=== PATIENT | male | born 1980 | race Caucasian/White ===

== ENCOUNTER → 2016-09-20 | Outpatient (CLI) | payer OTHER ==
--- NOTE | 2016-09-20 11:05 | MR ---
MR lumbar spine wo/w con Low back pain, prior lspine surgery MultiHance Multiplanar, multiecho imaging of the lumbar spine was obtained without contrast on a 3 Dottie magnet. REFERENCE:None. FINDINGS: There is a 2.4 cm cystic lesion involving the mid polar region of the left kidney. Paraspi nal soft tissues are otherwise unremarkable. There is a minimal levoscoliosis. Vertebral body height and alignment are maintained. There is no spondylolysis or spondylolisthesis. Cord signal is normal. The conus ends normally at the level of the mid body of L1. At T12-L1, no definite abnormality is seen. At L1-2, there is mild disc space loss. There is mild, bilateral intervertebral foraminal narrowing. There is hypertrophic change within the facets. At L2-3, there is mild, bilateral intervertebral foraminal narrowing. There is a diffuse disc displac ement. There are hypertrophic changes within the facets. There is mild trefoiling of the thecal sac. At L3-4, there is mild, bilateral intervertebral foraminal narrowing. There is a diffuse disc displac ement. There is hypertrophic change and capsulitis within the facets. There is mild trefoiling of the thecal sac. At L4-5, there is disc space loss and disc desiccation. There is a diffuse disc displacement. Interve rtebral foramina appear reasonably well-maintained. There is hypertrophic change and capsulitis withi n the facets. There is mild to moderate central canal stenosis. At L5-S1, there is disc space loss and disc desiccation present. The intervertebral foramina appear r easonably well-maintained. There is a diffuse disc displacement effacing the thecal sac without defin ite neural compression. There are hypertrophic changes within the facets. IMPRESSION: 1. DIFFUSE DEGENERATIVE DISC DISEASE. 2. DIFFUSE FACET ARTHROPATHY. 3. MULTILEVEL INTERVERTEBRAL FORAMINAL NARROWING. 4. MILD TO MODERATE CENTRAL CANAL COMPROMISE, L4-5.
== END | disposition home or self-care (01) ==
LOC: RADMRIMAIN 07:28
PROVIDERS: ATTEND Internal Medicine
DX: M99.73 Connective tissue and disc stenosis of intervertebral foramina of lumbar region (principal); M51.36 Other intervertebral disc degeneration, lumbar region; M46.86 Other specified inflammatory spondylopathies, lumbar region
CPT/HCPCS: 72158; A9577

== ENCOUNTER → 2017-01-03 | Outpatient (CLI) | payer OTHER ==
[2017-01-03 13:42] LABS: Appearance,Urine Clear (Clear); Bilirubin,Urine Negative (Negative); Glucose,Urine (UA) Negative (Negative); Ketones,Urine Negative (Negative); Leukocyte Esterase,Urine Negative (Negative); Nitrite,Urine Negative (Negative); PH, Urine 5.5 (5.0-8.0); Protein,Urine Negative (Negative); Specific Gravity,Urine 1.018 (1.001-1.035); UA Billing (MACRO vs. MICRO) CHEM; Urobilinogen,Urine <2.0 mg/dL (<2.0)
[2017-01-03 13:51] LABS: Partial Thromboplastin Time 23.3 sec (22.0-30.0); Prothrombin Time 10.4 sec (9.0-12.0)
[2017-01-03 13:58] LABS: Anion Gap 11 mmol/L; Blood Urea Nitrogen 15 mg/dL (9-20); Calcium 9.7 mg/dL (8.4-10.2); Carbon Dioxide 26 mmol/L (22-30); Chloride 103 mmol/L (98-107); Glucose 87 mg/dL (74-99); Non-African American GFR(MDRD) >60 (>60 ml/min/1.73 sqM); Potassium 4.6 mmol/L (3.5-5.1); Sodium 140 mmol/L (137-145)
[2017-01-03 14:03] LABS: EKG EKG PERFORMED
--- NOTE | 2017-01-03 14:33 | XR ---
EXAMINATION TYPE: XR chest 2V DATE OF EXAM: 01/03/2017 COMPARISON: NONE HISTORY: PAT ([id number]) per order. TECHNIQUE: Frontal and lateral views of the chest are obtained. FINDINGS: There is no focal air space opacity, pleural effusion, or pneumothorax seen. The cardiac silhouette size is within normal limits. The osseous structures are intact. IMPRESSION: No acute cardiopulmonary process.
[2017-01-03 16:26] LABS: Basophils % (A) 1 %; CH 29.9; CHCM 35.2; Eosinophils # (A) 0.1 k/uL (0-0.7); Eosinophils % (A) 3 %; HCT 45.7 % (39.0-53.0); HDW 2.69; HGB 15.8 gm/dL (13.0-17.5); Luc # (Auto) 0.17; Luc % (Auto) 3; Lymphocytes # (A) 2.5 k/uL (1.0-4.8); Lymphocytes % (A) 45 %; MCH 29.5 pg (25.0-35.0); MCHC 34.5 g/dL (31.0-37.0); MCV 85.3 fL (80.0-100.0); Mean Platelet Volume 7.6; Monocytes # (A) 0.4 k/uL (0-1.0); Monocytes % (A) 7 %; Neutrophils # (A) 2.4 k/uL (1.3-7.7); Neutrophils % (A) 42 %; RBC 5.36 m/uL (4.30-5.90); RDW 12.8 % (11.5-15.5); WBC 5.6 k/uL (3.8-10.6); WBC (Perox) 6.03
== END | disposition home or self-care (01) ==
LOC: LABPAT 11:56
PROVIDERS: ATTEND Orthopaedic Surgery Orthopaedic Surgery of the Spine
DX: Z01.810 Encounter for preprocedural cardiovascular examination (principal); Z01.818 Encounter for other preprocedural examination
CPT/HCPCS: 71020; 80048; 81003; 85025; 85610; 85730; 87070; 93005